=== PATIENT | female | born 1945 | race Caucasian/White ===

== ENCOUNTER 2018-08-04 22:48 | Emergency (ER) | payer MEDICARE ==
--- OUTSIDE RECORDS SUMMARY | 2018-08-04 23:33 | XMS REPORT | Continuity of Care Document ---
:1945 External Reference #:[id number] Author Name Mingo Persaud M.D. Address [address] [place] [address] Care Team Providers Name Role Phone Tima Augustin M.D. Primary Care Physician Unavailable Payers Type Date Identification Numbers Payment Provider Subscriber Policy Number: [id number] Medicare - [employer] Tennille Correakins PayID: [id number] [address] [place] [address] Policy Number: [id number] [facility] Tennille Santana PayID: [id number] [address] [place] [address] Advance Directives Description No Information Available Problems Date Description Provider Status Onset: Hypertensive disorder Active Onset: Chronic back pain Active Onset: 07/25/2018 Regular astigmatism Mingo Persaud M.D. Active Onset: 07/25/2018 Presbyopia Mingo Persaud M.D. Active Onset: 07/25/2018 Myopia Mingo Persaud M.D. 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 twice a day Methadone HCL Active Solution 5mg/5ML Unknown 000 Tramadol HCL Active Tablets 50mg Unknown 000 Diclofenac Active Gel 1% Unknown Sodium 000 Lisinopril Active Tablets 2.5mg Unknown 000 Multivitamin Active Tablets Unknown Adults 000 Vitamin D3 Active Tablets Unknown Complete 000 Biotin Active Capsules 1mg Unknown 000 Caltrate 600+D Active Tablets 600-800mg-U Unknown 000 nit Milk Thistle Active Capsules 140mg Unknown 000 Immunizations Description No Information Available Vital Signs Description No Information Available Results Description No Information Available Procedures Description No Information Available Encounters Description No Information Available Plan of Treatment 07/25/2018 - Mingo Persaud M.D.H04.123 Dry eye syndrome of bilateral lacrimal glandsComments:Smoking can increase the risk of developing or worsening any eye related disease, as well as affect your overall health. If you are a smoker, we strongly recommend that you quit.If you are not a smoker, we strongly recommend that you do not start. Both of your eyes appear to be dry. Use artificial tears as directed. You can use the tears more often if you are reading a book or are on the computer,as we tend to blink less, making our eyes dry out more.[facility] offers a few items in our optical department to help alleviate dry eye symptoms.Follow up:2 Year Follow Up You can expect to have your eyes dilated at your next visit. If Dr. Persaud orders any additional testing, it may require extra time. We recommend that you bring sunglasses, as dilation drops often make you light sensitive until they wear off. We always recommend you bring someone to drive you home if you are uncomfortable driving with your eyes dilated. If you have any questions before your next visit, feel free to call our office at .H52.13 Myopia, bilateralComments:You have Myopia, or near sightedness. I have given you a prescription for glasses.H52.4 PresbyopiaComments:You have presbyopia. This is when the lens in your eye loses the ability to change focus, and happens as we age. A pair of reading glasses will help you see up close.H52.223 Regular astigmatism, bilateralComments:You have an astigmatism. Astigmatism is a common vision condition that happens when a person's cornea is not symmetrical. Dr. Cordero has given you a prescription to correct for this.
[2018-08-04] MEDS ORDERED: Diazepam TAB(*) 5 MG PO ONE (23:57)
[2018-08-04] MEDS ORDERED: Ketorolac TAB * 10 MG TAB PO ONE (23:57)
[2018-08-05] MEDS ORDERED: predniSONE TAB* 20 MG PO ONE (01:57)
--- NOTE | 2018-08-05 02:02 | ED ---
Back Pain - HPI Summary HPI Summary: Patient with history of chronic back pain and sciatica complains of right-sided lower back pain radiating down right leg 4 days. Patient states she has moved here recently and is trying to set up care with pain management but states there is delay. Patient states she takes tramadol in the a.m. and methadone at noon and in the evening for chronic back pain. Denies trauma, fever, cough, sore throat, CV, SOB, N/V/D, Montaño pain, change in urine, change in BM, urinary retention, incontinence. Medical history is HTN, Doe, chronic back pain. History of back surgery 2. - History of Current Complaint Chief Complaint: EDBackInjuryPain Stated Complaint: BACK PAIN Time Seen by Provider: 08/04/18 23:24 Hx Obtained From: Patient Onset/Duration: Gradual Onset, Lasting Days Onset/Duration: Started Days Ago Timing: Constant Back Pain Location: Is Discrete @, Radiates To Severity Initially: Severe Severity Currently: Severe Pain Intensity: 10 Pain Scale Used: 0-10 Numeric Character: Aching, Throbbing, Burning Aggravating Symptom(s): Bending, Walking Alleviating Symptom(s): Nothing Associated Signs And Symptoms: Positive: Negative - Allergies/Home Medications Allergies/Adverse Reactions: Allergies Allergy/AdvReac Type Severity Reaction Status Date / Time alcohol AdvReac Unknown Verified 08/04/18 23:19 [From Bactine (with alcohol)] Reaction Details benzalkonium chloride AdvReac Unknown Verified 08/04/18 23:19 [From Bactine (with alcohol)] Reaction Details lidocaine AdvReac Unknown Verified 08/04/18 23:19 [From Bactine (with alcohol)] Reaction Details pregabalin [From Lyrica] AdvReac Swelling Verified 08/04/18 23:19 PMH/Surg Hx/FS Hx/Imm Hx GI History: Denies: Hx Ileostomy History: Denies: Hx Dialysis Sensory History: Denies: Hx Eye Prosthesis Opthamlomology History: Denies: Hx Legally Blind EENT History: Denies: Hx Deafness Neurological History: Denies: Hx Dementia Psychiatric History: Denies: Hx Autism - Surgical History Surgery Procedure, Year, and Place: Low Back Posterior Fusion L4-5 Infectious Disease History: No Infectious Disease History: Denies: Traveled Outside the [place] in Last 30 Days - Social History Alcohol Use: None Substance Use Type: Reports: None Smoking Status (MU): Never Smoked Tobacco Review of Systems Constitutional: Negative Eyes: Negative ENT: Negative Cardiovascular: Negative Respiratory: Negative Gastrointestinal: Negative Genitourinary: Negative Musculoskeletal: Other Skin: Negative Neurological: Negative Psychological: Normal All Other Systems Reviewed And Are Negative: Yes Physical Exam - Summary Physical Exam Summary: Patient moving bilateral lower extremities freely and frequently while stating lower back pain. Tenderness to palpation along the lower right side back. No tenderness to palpation of right lower extremity or hip. PMS intact distally on bilateral lower extremities. No ecchymosis, erythema, trauma, deformity noted to right side back hip or lower extremity. Triage Information Reviewed: Yes Vital Signs On Initial Exam: Initial Vitals Pulse Pulse Ox 79 96 08/04/18 23:08 08/04/18 23:08 Vital Signs Reviewed: Yes Appearance: Positive: Well-Appearing Skin: Positive: Warm Head/Face: Positive: Normal Head/Face Inspection Eyes: Positive: Normal Neck: Positive: Supple Respiratory/Lung Sounds: Positive: Clear to Auscultation Cardiovascular: Positive: Normal Abdomen Description: Positive: Nontender Musculoskeletal: Positive: Normal Neurological: Positive: Normal Psychiatric: Positive: Normal AVPU Assessment: Alert - [place] Coma Scale Best Eye Response: 4 - Spontaneous Best Motor Response: 6 - Obeys Commands Best Verbal Response: 5 - Oriented Coma Scale Total: 15 Diagnostics - Vital Signs Vital Signs Temp Pulse Resp BP Pulse Ox 08/05/18 01:00 71 93 08/05/18 00:21 16 08/05/18 00:16 88 95 08/05/18 00:08 81 181/87 96 08/05/18 00:00 82 97 08/04/18 23:38 79 170/87 96 08/04/18 23:10 97.7 F 78 20 197/68 96 08/04/18 23:09 79 197/68 93 08/04/18 23:08 79 96 - Laboratory Lab Statement: Any lab studies that have been ordered have been reviewed, and results considered in the medical decision making process. Back Pain Course/Dx - Course Course Of Treatment: Patient with history of chronic back pain and sciatica complains of right-sided lower back pain radiating down right leg 4 days. Patient states she has moved here recently and is trying to set up care with pain management but states there is delay. Patient states she takes tramadol in the a.m. and methadone at noon and in the evening for chronic back pain. Denies trauma, fever, cough, sore throat, CV, SOB, N/V/D, Montaño pain, change in urine, change in BM, urinary retention, incontinence. Medical history is HTN, Doe, chronic back pain. History of back surgery 2. Physical exam:Patient moving bilateral lower extremities freely and frequently while stating lower back pain. Tenderness to palpation along the lower right side back. No tenderness to palpation of right lower extremity or hip. PMS intact distally on bilateral lower extremities. No ecchymosis, erythema, trauma, deformity noted to right side back hip or lower extremity. Elevated blood pressure likely secondary to pain. Vital signs otherwise unremarkable. Patient takes lisinopril daily for blood pressure, and is compliant. Patient has established primary care already urinated [place]. Significant improvement in symptoms with Valium for an hour, then patient states pain returned. Patient was allowed to take her own methadone here in the ED which she normally takes at midnight. Some pain relief. Patient tramadol due at 7 AM. Patient offered hydrocodone to carry her over until tramadol. Follow-up with primary care and pain management. Rx for prednisone and Flexeril. - Diagnoses Provider Diagnoses: Chronic back pain, Sciatica Discharge - Sign-Out/Discharge Documenting (check all that apply): Patient Departure Patient Received Moderate/Deep Sedation with Procedure: No - Discharge Plan Condition: Stable Disposition: HOME Prescriptions: Cyclobenzaprine TAB* [Flexeril 10 MG TAB*] 10 mg PO TID PRN 5 Days #15 tab PRN Reason: Pain predniSONE TAB* [Deltasone 20 MG TAB*] 40 mg PO DAILY 5 Days #10 tab Patient Education Materials: Chronic Back Pain (DC) Referrals: Tima Augustin MD [Primary Care Provider] - Additional Instructions: Follow-up with pain management. Return to the ED for any new or worsening symptoms. - Billing Disposition and Condition Condition: STABLE Disposition: Home
[2018-08-05] MEDS ORDERED: HYDROcodone/ACETAMIN 5-325 MG* 1 TAB PO ONE (03:22)
[2018-08-05 03:41] VITALS: BP 181/81
== END 2018-08-05 04:10 | disposition home or self-care (01) ==
LOC: ED 22:48
DX: M54.9 Dorsalgia, unspecified (principal); M54.30 Sciatica, unspecified side; M54.5 Low back pain; I10 Essential (primary) hypertension
CPT/HCPCS: 99284; A9270-GY; J7512

== ENCOUNTER 2019-09-03 18:30 | Emergency (ER) | payer MEDICARE ==
--- OUTSIDE RECORDS SUMMARY | 2019-09-03 18:35 | XMS REPORT | Summary of Care ---
:1945 Author Organization [facility] Address [address] [facility] [place] [address] Care Team Providers Name Role Phone Tima Augustin Primary Care Provider Reason for Visit Reason Comments Labs Only last done 05/15/19 Diabetes f/u last a1c 05/15 (6.2) Derm Problem area noted on right hand 2nd digit, question cyst; top of bilateral feet increased dry rash area noted Fatigue increased tired/lethargic more recently and worsening Back Pain f/u chronic currently seeing [facility] [place] [place] [facility] Sleep Apnea f/u continues to Cpap at night with effect; Encounter Details Date Type Department Care Team Description 07/07/2019 Office Visit Lerna Tima Valencia, Hypercholesteremia (Primary Dx); [address] Essential hypertension; [place] [address] [address] [facility] Spinal stenosis of lumbar region with neurogenic claudication; [phone] Nonalcoholic steatohepatitis; [place] [address] MICHAEL (obstructive sleep apnea) [phone] Allergies Active Allergy Reactions Severity Noted Date Comments Tape: Silk Or Adhesive Other 05/23/2018 Skin irritant Awsfwmvhfe-Zaixxwu-Zlx-Hc Unknown Reaction 05/23/2018 Bactine Other 05/23/2018 swelling Ed A-Ceph Rash 05/23/2018 Ector Rash 05/23/2018 Benzalk GI Reaction 05/23/2018 Coughing and nausea Qt-Ebpougdcbsi-Hxvnscsxgbo 80 Latex Other 05/23/2018 Skin irritant Nickel Rash 05/23/2018 Titanium Dioxide Rash 05/23/2018 documented as of this encounter (statuses as of 07/23/2019) Medications Medication Sig Dispensed Refills Start Date End Date Status methadone (METHADOSE) Take 10 mg by 0 Active 10 MG Oral Tab mouth EVERY TWELVE HOURS. cyclosporin (RESTASIS) Place 1 Drop 0 Active 0.05 % Ophthalmic in both eyes Emulsion TWICE DAILY. Multiple Take by 0 Active Vitamins-Minerals mouth DAILY. (CENTRUM SILVER) Oral Tab Milk Thistle 140 MG Take by 0 Active Oral Cap mouth TWICE DAILY. Cholecalciferol Take by 0 Active (VITAMIN D3) 2000 mouth TWICE units Oral Tab DAILY. docusate sodium Take 200 mg 0 Active (COLACE) 100 MG Oral by mouth Cap TWICE DAILY. polyethylene glycol Take 17 g by 0 Active (MIRALAX) Oral Powder mouth TWICE DAILY. Triamcinolone [place] 2 0 Active Acetonide (NASACORT AQ Sprays in NA) nose DAILY. Biotin 1000 MCG Oral Take by 0 Active Tab mouth TWICE DAILY. Calcium Take by 0 Active Carb-Cholecalciferol mouth TWICE (CALCIUM 600+D) DAILY. 600-800 MG-UNIT Oral Tab Gabapentin, Take 2 Tabs 90 Tab 0 07/05/2018 Active Once-Daily, (GRALISE) by mouth 600 MG Oral Tab EVERY EVENING. Tramadol HCl 300 MG Take 1 Tab by 5 Tab 0 09/04/2018 Active Oral TABLET SR 24 HR mouth DAILY. Max Daily Amount: 300 mg. Methylnaltrexone Inject 0.6 mL 2.1 mL 3 10/05/2018 Active [place] (RELISTOR) 12 beneath the MG/0.6ML Subcutaneous skin Solution DIRECTED. Uses it 2-3 times a week diclofenac (VOLTAREN) Take 1 Tab by 60 Tab 11 11/29/2018 Active 75 MG Oral Tab EC mouth TWICE DAILY. duloxetine (CYMBALTA) TAKE 1 30 Cap 5 02/17/2019 Active 60 MG Oral CAPSULE CAPSULE BY ENTERIC COATED MOUTH ONCE A PARTICLES DAY cyclobenzaprine Take 10 mg by 0 Active (FLEXERIL) 10 mg Oral mouth THREE Tab TIMES DAILY NEEDED. furosemide (LASIX) 40 Take 1 Tab by 30 Tab 11 05/12/2019 Active MG Oral Tab mouth DAILY. lisinopril (PRINIVIL, TAKE 1 TAB BY 90 Tab 3 06/02/2019 Active ZESTRIL) 10 MG Oral MOUTH DAILY. Tab Fexofenadine-Pseudoeph Take by 0 Active edrine (KARAN-D 24 mouth. HOUR PO) ketoconazole (NIZORAL) Apply to 60 g 3 07/13/2019 Active 2 % Apply externally affected Cream areas daily as needed cetirizine (ZYRTEC Take 10 mg by 0 Discontinued ALLERGY) 10 MG Oral mouth EVERY 0 Tab MORNING. diphenhydrAMINE Take 25 mg by 0 Discontinued (BENADRYL ALLERGY) 25 mouth EVERY 0 MG Oral Tab BEDTIME. documented as of this encounter (statuses as of 07/23/2019) Active Problems Problem Noted Date Diabetes mellitus type 2, without complication 05/12/2019 Chronic back pain Lumbar spinal stenosis HTN (hypertension) Dry eyes Constipation due to opioid therapy Gastroesophageal reflux disease with esophagitis Nonalcoholic steatohepatitis MICHAEL (obstructive sleep apnea) Osteoarthritis of lumbosacral spine with radiculopathy Basal cell carcinoma (BCC) of skin of nose Hypercholesteremia Left ventricular hypertrophy Allergic rhinitis Psoriasis documented as of this encounter (statuses as of 07/23/2019) Immunizations Name Administration Dates Next Due Influenza Vaccine High Dose 04/12/2019 ZOSTER (SHINGRIX) VACCINE 04/19/2019, 12/01/2018 documented as of this encounter Social History Tobacco Use Types Packs/Day Years Used Date Never Smoker Smokeless Tobacco: Never Used Alcohol Use Drinks/Week oz/Week Comments No quit 2004 d/t medications Sex Assigned at Date Recorded Not on file Job Start Date Occupation Industry Not on file Not on file Not on file Travel History Travel Start Travel End No recent travel history available. documented as of this encounter Last Filed Vital Signs Vital Sign Reading Time Taken Comments Blood Pressure 140/72 07/07/2019 2:32 PM EST Pulse 68 07/07/2019 2:32 PM EST Temperature - - Respiratory Rate - - Oxygen Saturation - - Inhaled Oxygen Concentration - - Weight 109.8 kg (242 lb) 07/07/2019 2:32 PM EST Height - - Body Mass Index 40.27 05/12/2019 3:45 PM EST documented in this encounter Progress Notes Tima Augustin MD - 07/07/2019 2:00 PM EST PATIENT: Tennille Santana : 1945 DATE OF SERVICE: 07/07/2019 CHIEF COMPLAINT: Chief Complaint Patient presents with Labs Only last done 05/15/19 Diabetes f/u last a1c 05/15 (6.2) Derm Problem area noted on right hand 2nd digit, question cyst; top of bilateral feet increased dry rash area noted Fatigue increased tired/lethargic more recently and worsening Back Pain f/u chronic currently seeing [facility] [place] Sleep Apnea f/u continues to Cpap at night with effect; Subjective HISTORY OF PRESENT ILLNESS: Tennille Santana is a 74-y.o. female. HPI She returns in follow-up of her multiple medical issues. Feeling more tired, thinks it is from switching from Nucynta to tramadol which was done for formulary reasons. She will be having another steroid injection in her spine with Dr. Wood in a few weeks. She has chronic low back pain, on multiplemedicines for this. She is following with the pain clinic for her pain medications. Has a cyst on her right third DIP joint consistent with a ganglion cyst. Told her this could be excised but did not have to be if it was not bothering her. Using CPAP for sleep apnea, no problems Had lab work done in April with normal CBC and serum chemistries except for sodium 132 glucose 107. TSH was normal, cholesterol was 220 with HDL 78.7 and LDL 109. She was asked to be stricter withher diet with respect to cholesterol. Hemoglobin A1c was 6.2% BNP was normal at 28 indicating no sign of heart failure. Urine for microalbumin was slightly elevated at 47.9. Past Medical History: Diagnosis Date Allergic rhinitis Basal cell carcinoma (BCC) of skin of nose MOHLs procedure 2018 Chronic back pain Closed tibia fracture 06/05/2017 d/t fall, left Constipation due to opioid therapy Dry eyes Gastroesophageal reflux disease with esophagitis HTN (hypertension) Hypercholesteremia Left ventricular hypertrophy Lumbar spinal stenosis Nonalcoholic steatohepatitis MICHAEL (obstructive sleep apnea) Osteoarthritis of lumbosacral spine with radiculopathy Psoriasis Family History Problem Relation Age of Onset Osteoporosis Mother Cancer Father esophageal, non smoker Diabetes Brother Diabetes Maternal Grandfather Current Outpatient Medications Medication Sig Biotin 1000 MCG Oral Tab Take by mouth TWICE DAILY. Calcium Carb-Cholecalciferol (CALCIUM 600+D) 600-800 MG-UNIT Oral Tab Take by mouth TWICE DAILY. Cholecalciferol (VITAMIN D3) 2000 units Oral Tab Take by mouth TWICE DAILY. cyclobenzaprine (FLEXERIL) 10 mg Oral Tab Take 10 mg by mouth THREE TIMES DAILY NEEDED. cyclosporin (RESTASIS) 0.05 % Ophthalmic Emulsion Place 1 Drop in both eyes TWICE DAILY. diclofenac (VOLTAREN) 75 MG Oral Tab EC Take 1 Tab by mouth TWICE DAILY. docusate sodium (COLACE) 100 MG Oral Cap Take 200 mg by mouth TWICE DAILY. duloxetine (CYMBALTA) 60 MG Oral CAPSULE ENTERIC COATED PARTICLES TAKE 1 CAPSULE BY MOUTH ONCE A DAY Fexofenadine-Pseudoephedrine (KARAN-D 24 HOUR PO) Take by mouth. furosemide (LASIX) 40 MG Oral Tab Take 1 Tab by mouth DAILY. Gabapentin, Once-Daily, (GRALISE) 600 MG Oral Tab Take 2 Tabs by mouth EVERY EVENING. lisinopril (PRINIVIL, ZESTRIL) 10 MG Oral Tab TAKE 1 TAB BY MOUTH DAILY. methadone (METHADOSE) 10 MG Oral Tab Take 10 mg by mouth EVERY TWELVE HOURS. Methylnaltrexone Wilton (RELISTOR) 12 MG/0.6ML Subcutaneous Solution Inject 0.6 mL beneath the skin DIRECTED. Uses it 2-3 times a week Milk Thistle 140 MG Oral Cap Take by mouth TWICE DAILY. Multiple Vitamins-Minerals (CENTRUM SILVER) Oral Tab Take by mouth DAILY. polyethylene glycol (MIRALAX) Oral Powder Take 17 g by mouth TWICE DAILY. Tramadol HCl 300 MG Oral TABLET SR 24 HR Take 1 Tab by mouth DAILY. Max Daily Amount: 300 mg. Triamcinolone Acetonide (NASACORT AQ NA) [place] 2 Sprays in nose DAILY. No current facility-administered medications for this visit. Allergies Allergen Reactions Adhesive [Tape: Silk Or Adhesive] Other Skin irritant Fdpfyohdjp-Zllqphr-Kfz-Hc Unknown Reaction Bactine Other swelling Cephalexin [Ed A-Ceph] Rash Ector Rash Flonase [Benzalk Nu-Mynrkbiitvg-Mqnpggzpjeq 80] GI Reaction Coughing and nausea Latex Other Skin irritant Nickel Rash Titanium Dioxide Rash Social History Socioeconomic History Marital status: Spouse name: Not on file Number of children: Not on file Years of education: Not on file Highest education level: Not on file Occupational History Not on file Social Needs Financial resource strain: Not on file Food insecurity Worry: Not on file Inability: Not on file Transportation needs Medical: Not on file Non-medical: Not on file Tobacco Use Smoking status: Never Smoker Smokeless tobacco: Never Used Substance and Sexual Activity Alcohol use: No Comment: quit 2003 d/t medications Drug use: No Sexual activity: Never Lifestyle Physical activity Days per week: Not on file Minutes per session: Not on file Stress: Not on file Relationships Social connections Talks on phone: Not on file Gets together: Not on file Attends temple service: Not on file Active member of club or organization: Not on file Attends meetings of clubs or organizations: Not on file Relationship status: Not on file Intimate partner violence Fear of current or ex partner: Not on file Emotionally abused: Not on file Physically abused: Not on file Forced sexual activity: Not on file Other Topics Concern Not on file Social History Narrative Not on file REVIEW OF SYSTEMS: Review of Systems Constitutional: Positive for malaise/fatigue. Negative for weight loss. HENT: Negative for congestion. Eyes: Negative for blurred vision. Respiratory: Positive for shortness of breath. Cardiovascular: Negative for chest pain. Gastrointestinal: Negative for abdominal pain. Musculoskeletal: Positive for back pain. Skin: Positive for rash ( On feet). Neurological: Negative for seizures and loss of consciousness. Endo/Heme/Allergies: Negative for polydipsia. Psychiatric/Behavioral: The patient is not nervous/anxious. Objective PHYSICAL EXAM: VITALS: BP 140/72 (BP Location: Right arm, Patient Position: Sitting) | Pulse 68 | Wt 242 lb (109.8 kg) | BMI 40.27 kg/m Body mass index is 40.27 kg/m . Physical Exam Alert, oriented, in no acute distress. Vitals as above. HEENT: Normocephalic, atraumatic. MICAELA, EOMI. Mouth and ears unremarkable. Neck: No palpable lymphadenopathy in the submandibular, submental, anterior cervical, posterior cervical, or occipital chains, nor in the supraclavicular spaces. No JVD, thyromegaly. LUNGS: clear. HEART: Regular rate and rhythm. ABDOMEN: positive bowel sounds, soft, nontender, no hepatosplenomegaly, masses or bruits. EXTREMITIES: no cyanosis, clubbing, but with trace1+ edema. Feet with changes of chronic fungal infection in moccasin distribution ASSESSMENT / IMPRESSION: ICD-9-CM ICD-10-CM 1. Hypercholesteremiatreated 272.0 E78.00 2. Essential hypertensioncontrolled 401.9 I10 3. Spinal stenosis of lumbar region with neurogenic claudicationcontinue with pain clinic. Told her to ask doctors if she can get back on Nucynta 724.03 M48.062 4. Nonalcoholic steatohepatitiswork harder on losing weight 571.8 K75.81 5. MICHAEL (obstructive sleep apnea)continue CPAP 327.23 G47.33 6. prediabetes- The patient is asked to improve diet and exercise patterns to aid in medical management of this. 7. Foot rash consistent with fungususe ketoconazole twice daily for 2 weeks She will follow-up in 3 months at which time we will draw CBC CMP lipid profile and hemoglobin A1c for diagnoses of fatigue and prediabetes. CC: Dr. Israel Albarran. author: Tima Augustin MD 07/13/2019 17:54 documented in this encounter Plan of Treatment Date Type Specialty Care Team Description 08/03/2019 Office Visit Gastroenterology Dulce Quezada, DAIRY HUSBANDRY WORKER [address] [address] 10/06/2019 Office Visit Internal Medicine Tima Augustin MD [address] [place] [id number] [phone] Health Maintenance Due Date Last Done Comments Diabetic Eye Exam 1945 MEDICARE ANNUAL WELLNESS VISIT 1945 FOOT EXAM 1961 PNEUMOCOCCAL 65+YRS (1 of 2 - 2008 PCV13) HEMOGLOBIN A1C 11/13/2019 05/15/2019, 02/13/2019, 01/31/2019 DEPRESSION SCREENING 05/12/2020 05/12/2019, 05/12/2019 FALL RISK ASSESSMENT 05/12/2020 05/12/2019, 05/12/2019 OSTEOPOROSIS SCREENING 11/30/2028 11/30/2018, 11/30/2018 INFLUENZA VACCINE Completed 04/12/2019 ZOSTER IMMUNIZATION SERIES Completed 04/19/2019, 12/01/2018 HEPATITIS A IMMUNIZATION Aged Out No longer eligible based SERIES on patient's age to complete this topic HPV IMMUNIZATION SERIES Aged Out No longer eligible based on patient's age to complete this topic MENINGOCOCCAL VACCINE IMM Aged Out No longer eligible based on patient's age to complete this topic documented as of this encounter Goals Goal Patient Goal Associated Recent Patient-Stated? Author Type Problems Progress Blood Pressure Blood Pressure 140/72 No Demetria, < 150/90 (07/07/2019 MD Tima 2:32 PM EST) Note: This is an individualized treatment (blood pressure) goal for Tennille Santana: Displayed above (on the left) is your goal for blood pressure control. Your most recent blood pressure is also shown above, on the right. You should try to achieve blood pressures that are lower than your goal listed above (on the left). Glycohemoglobin A1c < 7.0 Diabetes 6.6 (01/31/2019 3:09 PM Tima Beard MD EDT) Note: This is an individualized treatment (diabetes control, HgbA1C) goal for Tennille Santana: Displayed above is your progress towards your HgbA1C goal. Your goal is shown above (on the left); your most recent HgbA1C is shown on the right. Note that lower numbers are better. Weight loss vs. 18 mo Lifestyle 12 (07/07/2019 2:32 PM EST) Tima Beard MD max (lbs) >= 10 Note: This is an individualized lifestyle goal for Tennille Santana: Your body mass index (BMI) is more than 30. You should lose weight. A reasonable starting goal is to lose 10 pounds. Displayed above is how many pounds you have lost thus far towards your 10 pound weight loss goal. Keep immunizations current Lifestyle Tima Beard MD Note: This is an individualized lifestyle goal for Tennille Santana: Please be sure to keep up-to-date on recommended immunizations. For example, this would include a yearly influenza vaccine. Immunization status can be seen by looking at the Health Maintenance sections of your e[facility], Plan of Care, and any After Visit Summaries. Take all prescribed medications as directed Self-management Tima Beard MD Note: This is an individualized self-management goal for Tennille Santana: Please take all prescribed medications as directed. 1. Do not skip doses. If you cannot afford your medications, talk with your doctor. 2. Use a pill reminder system such as a pill box if needed. Your pharmacist can help you with this. 3. Contact your Pharmacy 5 days before your medication runs out. If you cannot take your medications for any reasons, talk with your doctor. 4. Please bring all of your medication bottles and inhalers (or a list of all your medications/inhalers) with you to every visit. Potential barriers to meeting all of your care plan goals will continue to be addressed on an ongoing basis. documented as of this encounter Results Not on filedocumented in this encounter Visit Diagnoses Diagnosis Hypercholesteremia Pure hypercholesterolemia Essential hypertension Unspecified essential hypertension Spinal stenosis of lumbar region with neurogenic claudication Spinal stenosis, lumbar region, with neurogenic claudication Nonalcoholic steatohepatitis Other chronic nonalcoholic liver disease MICHAEL (obstructive sleep apnea) Obstructive sleep apnea (adult) (pediatric) documented in this encounter Insurance Payer Benefit Plan / Subscriber ID Effective Dates Phone Address Type Group MEDICARE MEDICARE PART A xxxxxxxxxxx 2008-Present Medicare & B [facility] COMMERCIAL [facility] xxxxxxxxxxx 2018-Present [facility] OPTIONS documented as of this encounter"
[2019-09-03 18:56] VITALS: BP 158/75
[2019-09-03] MEDS ORDERED: Sulfamethox/Trimethoprim DS 800/160* TAB PO ONE ×2 (19:34→19:35)
--- NOTE | 2019-09-03 19:38 | UC ---
Skin Complaint HPI - HPI Summary HPI Summary: skin tear right skin 3 days ago---this day swelling and increase redness---- staff at [facility] put on steri strips - History of Current Complaint Chief Complaint: UCLowerExtremity Time Seen by Provider: 09/03/19 19:11 Stated Complaint: LEG WOUND Hx Obtained From: Patient ?: No Onset/Duration: Sudden Onset, Lasting Days, Still Present Timing: Constant Onset Severity: Mild Current Severity: Mild Pain Intensity: 5 Pain Scale Used: 0-10 Numeric Location: Discrete - right neil Character: Swelling, Redness, Painful Aggravating Factor(s): Nothing Alleviating Factor(s): Nothing Associated Signs & Symptoms: Negative: Fever, Drainage Related History: Trauma - hit her leg on the side of the car door - Allergy/Home Medications Allergies/Adverse Reactions: Allergies Allergy/AdvReac Type Severity Reaction Status Date / Time adhesive Allergy Itching Verified 09/03/19 18:56 alcohol AdvReac VERY RED Verified 09/03/19 18:56 [From Bactine (with alcohol)] benzalkonium chloride AdvReac VERY RED Verified 09/03/19 18:56 [From Bactine (with alcohol)] pregabalin [From Lyrica] AdvReac Swelling Verified 09/03/19 18:56 COLBALT Allergy UNSURE- Uncoded 09/03/19 18:56 EXACT REACTION Home Medications: Home Medications Jeffery/D3/Mag11/Zinc/Stitch Separator/Pepe/Bor [Caltrate 600+D Plus Tablet] 1 each PO BID [History Confirmed 09/03/19] Cholecalciferol (Vitamin D3) [Vitamin D3] 2,000 unit PO BID 05/03/18 [History Confirmed 09/03/19] Cyclosporine 0.05% OPHTH (NF) [Restasis 0.05% OPHTH] 1 drop BOTH EYES DAILY 12/13 [History Confirmed 09/03/19] DULoxetine DR CAP* [Cymbalta CAP*] 60 mg PO DAILY 05/03/18 [History Confirmed ] Diclofenac Sodium 75 mg PO BID 05/03/18 [History Confirmed 09/03/19] Docusate CAP* [Colace Cap*] 200 mg PO BID 05/03/18 [History Confirmed 09/03/19] Lisinopril TAB* [Prinivil TAB 10 MG*] 10 mg PO DAILY 05/03/18 [History Confirmed 09/03/19] Methadone TAB* [Dolophine TAB*] 10 mg PO Q12H PRN 05/03/18 [History Confirmed ] Methylnaltrexone SQ (NF) [Relistor SQ (NF)] 12 mg SUBCUT EVERY OTHER DAY [History Confirmed 09/03/19] Milk Thistle Seed Extract [Milk Thistle] 140 mg PO BID 05/03/18 [History Confirmed 09/03/19] Multivitamin/Iron/Folic Acid [Centrum Adults Tablet] 1 each PO DAILY 05/03/18 [ History Confirmed 09/03/19] Polyethylene Glycol 3350* [Miralax (17 GM DOSE AYAZ)] 17 gm PO BID 05/03/18 [ History Confirmed 09/03/19] Triamcinolone NASAL SPRAY* [Nasacort Aq Nasal [place]*] 2 spray .SEE ORDER DAILY 05/03/18 [History Confirmed 09/03/19] Gabapentin [Gralise] 600 mg PO QPM 08/13/18 [History Confirmed 09/03/19] Tapentadol ER (NF) [Nucynta ER (NF)] 100 mg PO BID 07/26/19 [History Confirmed 09/03/19] Sulfamethox/Trimethoprim DS* [Bactrim DS 800/160 TAB*] 1 tab PO BID #12 tab 02/14 [Rx] PMH/Surg Hx/FS Hx/Imm Hx Previously Healthy: No Cardiovascular History: Hypertension - Surgical History Surgical History: Yes Surgery Procedure, Year, and Place: 2009 -Low Back Posterior Fusion L4-5. CATARACTS. BASAL CELL CARCINOMA SPOTS REMOVED - Family History Known Family History: Positive: Diabetes, Other - Cancer - Social History Occupation: Retired Lives: Assisted Living Alcohol Use: None Substance Use Type: None Smoking Status (MU): Never Smoked Tobacco Household Exposure Type: Cigarettes Review of Systems All Other Systems Reviewed And Are Negative: Yes Constitutional: Positive: Negative Skin: Positive: Other - skin tear right lower leg 4 cm arc shapped--poor approximation steris appied by Elizabeth 3 days ago Eyes: Positive: Negative ENT: Positive: Negative Respiratory: Positive: Negative Cardiovascular: Positive: Negative Gastrointestinal: Positive: Negative Genitourinary: Positive: Negative Motor: Positive: Negative Neurovascular: Positive: Negative Musculoskeletal: Positive: Negative Neurological/Mental Status: Positive: Negative Psychological: Positive: Negative Is Patient Immunocompromised?: No Physical Exam Triage Information Reviewed: Yes Appearance: Well-Appearing, No Pain Distress, Well-Nourished Vital Signs: Initial Vital Signs Temp 98.0 F 09/03/19 18:52 Pulse 79 09/03/19 18:52 Resp 18 09/03/19 18:52 BP 158/75 09/03/19 18:52 Pulse Ox 97 09/03/19 18:52 Vital Signs Reviewed: Yes Eye Exam: Normal Eyes: Positive: Conjunctiva Clear ENT Exam: Normal ENT: Positive: Normal ENT inspection, Hearing grossly normal. Negative: Trismus , Muffled voice, Hoarse voice Neck exam: Normal Neck: Positive: Supple, Nontender, No Lymphadenopathy Respiratory Exam: Normal Respiratory: Positive: Chest non-tender, No respiratory distress, No accessory muscle use Cardiovascular Exam: Normal Cardiovascular: Positive: RRR, Pulses Normal, Brisk Capillary Refill Musculoskeletal Exam: Other Musculoskeletal: Positive: Strength Intact, ROM Intact, Edema @ - right lower leg, Other: - no calf pain Neurological Exam: Normal Neurological: Positive: Alert, Muscle Tone Normal Psychological Exam: Normal Skin: Positive: Other - 4 cm arc shaped skin tear right neil---now with increase swelling and erythema anterior portion of lower leg Course/Dx - Course Course Of Treatment: Vaseline gauze bulky dressing and stockinette to be changed daily bactrim ds elevate leg and use heat---follow with [facility] and pcp this week for wound and bp checks - Diagnoses Provider Diagnosis: Cellulitis of right anterior lower leg Discharge ED - Sign-Out/Discharge Documenting (check all that apply): Patient Departure All imaging exams completed and their final reports reviewed: No Studies - Discharge Plan Condition: Stable Disposition: HOME Prescriptions: Sulfamethox/Trimethoprim DS* [Bactrim DS 800/160 TAB*] 1 tab PO BID #12 tab Patient Education Materials: Cellulitis (ED), Hypertension (ED), Warm Compress or Soak (ED) Referrals: Tima Augustin MD [Primary Care Provider] - 4 Days Additional Instructions: Change dressing on leg daily, elevate leg !! - Billing Disposition and Condition Condition: STABLE Disposition: Home
== END 2019-09-03 20:17 | disposition home or self-care (01) ==
LOC: UCEAST 18:30
DX: L03.115 Cellulitis of right lower limb (principal); I10 Essential (primary) hypertension; Z79.899 Other long term (current) drug therapy; Z91.09 Other allergy status, other than to drugs and biological substances; Z88.8 Allergy status to other drugs, medicaments and biological substances
CPT/HCPCS: 99213; A9270-GY; G0463

== ENCOUNTER 2020-02-06 12:59 | Inpatient (IN) ==
[2020-02-06] MEDS ORDERED: NS 0.9% 1000 ml BAG 1,000 ML IV ONE ×2 (13:28→16:51)
[2020-02-06 14:16] LABS: ABS Lymphocytes 0.4 10^3/ul (1.0-4.8); ABS Monocytes 0.3 10^3/ul (0-0.8); ABS Neutrophils 4.6 10^3/ul (1.5-7.7); Eosinophil % 0.1 %; Hematocrit 35 % (35-47); Hemoglobin 12.6 g/dL (12.0-16.0); Lymphocyte % 8.3 %; Mean Corpuscular HGB Conc 36 g/dL (31-36); Mean Corpuscular Hemoglobin 33 pg (27-31); Mean Corpuscular Volume 92 fL (80-97); Mean Platelet Volume 6.6 fL (7.4-10.4); Platelet Count 367 10^3/uL (150-450); Red Cell Distribution Width 13 % (10-15); White Blood Count 5.4 10^3/uL (3.5-10.8)
[2020-02-06 14:25] LABS: INR 0.98 (0.82-1.09)
[2020-02-06] MEDS ORDERED: Lidocaine PATCH 5% PATCH TRANSDERM ONE (14:43)
[2020-02-06 15:00] LABS: Potassium 3.9 mmol/L (3.5-5.0)
[2020-02-06 15:01] LABS: Albumin 4.7 g/dL (3.2-5.2); Albumin/Globulin Ratio 1.7 (1-3); BUN/Creatinine Ratio 23.7 (8-20); EGFR African American 89.5 (>60); Globulin 2.8 g/dL (2-4); Magnesium 2.1 mg/dL (1.9-2.7); Total Bilirubin 0.5 mg/dL (0.2-1.0); Total Protein 7.5 g/dL (6.4-8.9)
[2020-02-06 15:10] LABS: TSH Ultra Thyroid Stim Horm 1.38 mcIU/mL (0.34-5.60)
[2020-02-06] MEDS ORDERED: Morphine 4 MG/ML VIAL (1 ml) IV ONE (15:21)
[2020-02-06 15:56] LABS: Urine Appearance Clear; Urine Bilirubin Negative (Negative); Urine Blood Negative (Negative); Urine Color Colorless; Urine Glucose Negative (Negative); Urine Ketones Trace (Negative); Urine Nitrite Negative (Negative); Urine Protein Negative (Negative); Urine Specific Gravity 1.003 (1.010-1.030); Urine Urobilinogen Negative (Negative)
[2020-02-06 18:06] LABS: BUN/Creatinine Ratio 18.9 (8-20); Calcium 9.8 mg/dL (8.6-10.3); EGFR African American 92.3 (>60); EGFR Non-African American 76.3 (>60); Potassium 4.1 mmol/L (3.5-5.0)
[2020-02-06] MEDS ORDERED: LORazepam 2 mg VIAL 1 ml IV PUSH ONE ×2 (18:54→19:52)
[2020-02-06] MEDS ORDERED: Lorazepam PYXIS KEY PRN (18:54)
[2020-02-06 18:59] LABS: C Reactive Protein 1.14 mg/L (<8.01)
[2020-02-06] MEDS ORDERED: LORazepam 2 mg VIAL 1 ml ONE (19:04)
[2020-02-06] MEDS ORDERED: Tapentadol 50 mg TAB (NF) PO ONE (19:07)
[2020-02-06] MEDS ORDERED: Ondansetron 4 mg VIAL 2 MG/ML 2 ml VIAL IV PRN (19:23)
[2020-02-06] MEDS ORDERED: NS 0.9% 1000 ml BAG 1,000 ML IV SCH (20:00)
[2020-02-06] MEDS: Enoxaparin 40 MG/0.4 ML SYR SUBCUT SCH (21:15)
[2020-02-06 21:16] LABS: Urine Creatinine Concentration 7.89 mg/dL
[2020-02-06] MEDS: Cholecalciferol (VIT D3) 1,000 unit TAB PO SCH (21:17)
[2020-02-06] MEDS: Polyethylene Glycol 3350 17 GM PACKET PO SCH (21:18)
[2020-02-06] MEDS: Diclofenac Sod EC 25 mg TAB PO SCH (21:25)
[2020-02-06] MEDS: Polyethyl Glycol/Propylene Gly OPHTH.SOLN BOTH EYES SCH (21:26)
[2020-02-06] MEDS: Lidocaine Patch REMOVE PATCH PATCH OFF SCH (22:00)
[2020-02-07 00:31] LABS: Calcium 9.4 mg/dL (8.6-10.3)
[2020-02-07 00:37] LABS: BUN/Creatinine Ratio 17.6 (8-20); EGFR African American 101.8 (>60); EGFR Non-African American 84.1 (>60)
[2020-02-07] MEDS: Tapentadol 50 mg TAB (NF) PO PRN ×2 (01:54→18:20)
[2020-02-07] MEDS: Diclofenac Sod EC 25 mg TAB PO SCH ×2 (10:17→20:35)
[2020-02-07] MEDS: Polyethyl Glycol/Propylene Gly OPHTH.SOLN BOTH EYES SCH ×2 (10:17→20:38)
[2020-02-07] MEDS: Cholecalciferol (VIT D3) 1,000 unit TAB PO SCH ×2 (10:17→20:36)
[2020-02-07] MEDS: DULoxetine DR 60 mg CAP PO SCH (10:17)
[2020-02-07] MEDS: Polyethylene Glycol 3350 17 GM PACKET PO SCH ×2 (10:18→20:39)
[2020-02-07] MEDS: TRIAMCINOLONE BOTH NARES SCH (10:18)
[2020-02-07 11:38] LABS: ABS Eosinophils 0.1 10^3/ul (0-0.6); ABS Lymphocytes 0.7 10^3/ul (1.0-4.8); ABS Monocytes 0.6 10^3/ul (0-0.8); ABS Neutrophils 4.6 10^3/ul (1.5-7.7); Eosinophil % 0.9 %; Hematocrit 35 % (35-47); Hemoglobin 12.3 g/dL (12.0-16.0); Lymphocyte % 11.7 %; Mean Corpuscular HGB Conc 36 g/dL (31-36); Mean Corpuscular Hemoglobin 33 pg (27-31); Mean Corpuscular Volume 93 fL (80-97); Mean Platelet Volume 6.6 fL (7.4-10.4); Platelet Count 369 10^3/uL (150-450); Red Cell Distribution Width 13 % (10-15)
[2020-02-07 12:02] LABS: BUN/Creatinine Ratio 18.1 (8-20); Calcium 9.7 mg/dL (8.6-10.3); EGFR African American 95.3 (>60); EGFR Non-African American 78.8 (>60); Potassium 3.7 mmol/L (3.5-5.0)
[2020-02-07 13:12] LABS: Hepatitis B Surface Ab Not Immune (Immune); Hepatitis C Antibody Negative (Negative)
[2020-02-07 14:26] LABS: Hepatitis B Surface Antigen Nonreactive (Nonreactive)
[2020-02-07 14:31] LABS: HIV 4th Generation Nonreactive (Nonreactive)
[2020-02-07] MEDS: Enoxaparin 40 MG/0.4 ML SYR SUBCUT SCH (20:37)
[2020-02-07] MEDS: Lidocaine Patch REMOVE PATCH PATCH OFF SCH (22:44)
[2020-02-08] MEDS: Tapentadol 50 mg TAB (NF) PO SCH ×4 (00:21→17:44)
[2020-02-08 06:44] LABS: ABS Basophils 0.1 10^3/ul (0-0.2); ABS Eosinophils 0.1 10^3/ul (0-0.6); ABS Lymphocytes 1.4 10^3/ul (1.0-4.8); ABS Monocytes 0.5 10^3/ul (0-0.8); ABS Neutrophils 2.9 10^3/ul (1.5-7.7); Eosinophil % 2.8 %; Hematocrit 33 % (35-47); Hemoglobin 11.6 g/dL (12.0-16.0); Mean Corpuscular HGB Conc 35 g/dL (31-36); Mean Corpuscular Hemoglobin 33 pg (27-31); Mean Corpuscular Volume 94 fL (80-97); Mean Platelet Volume 6.6 fL (7.4-10.4); Platelet Count 325 10^3/uL (150-450); Red Cell Distribution Width 13 % (10-15); White Blood Count 5.1 10^3/uL (3.5-10.8)
[2020-02-08 07:01] LABS: BUN/Creatinine Ratio 20.6 (8-20); Calcium 9.9 mg/dL (8.6-10.3); EGFR African American 67.6 (>60); EGFR Non-African American 55.8 (>60); Potassium 4.1 mmol/L (3.5-5.0)
[2020-02-08] MEDS: Polyethylene Glycol 3350 17 GM PACKET PO SCH ×2 (08:25→19:58)
[2020-02-08] MEDS: Polyethyl Glycol/Propylene Gly OPHTH.SOLN BOTH EYES SCH (08:27)
[2020-02-08] MEDS: Cholecalciferol (VIT D3) 1,000 unit TAB PO SCH ×2 (08:27→19:58)
[2020-02-08] MEDS: DULoxetine DR 60 mg CAP PO SCH (08:27)
[2020-02-08] MEDS: TRIAMCINOLONE BOTH NARES SCH (08:28)
[2020-02-08] MEDS: Diclofenac Sod EC 25 mg TAB PO SCH ×2 (08:28→19:58)
[2020-02-08] MEDS ORDERED: Methylnaltrexone SQ (NF) 12 MG/0.6 ML VIAL SUBCUT PRN (09:00)
[2020-02-08] MEDS: Enoxaparin 40 MG/0.4 ML SYR SUBCUT SCH (19:59)
[2020-02-08] MEDS: Lidocaine Patch REMOVE PATCH PATCH OFF SCH (20:10)
[2020-02-09] MEDS: Tapentadol 50 mg TAB (NF) PO SCH ×5 (02:10→18:47)
[2020-02-09] MEDS: Polyethyl Glycol/Propylene Gly OPHTH.SOLN BOTH EYES SCH ×3 (03:52→20:34)
[2020-02-09 06:59] LABS: ABS Eosinophils 0.2 10^3/ul (0-0.6); ABS Lymphocytes 1.4 10^3/ul (1.0-4.8); ABS Monocytes 0.5 10^3/ul (0-0.8); ABS Neutrophils 2.1 10^3/ul (1.5-7.7); Eosinophil % 5.5 %; Hematocrit 32 % (35-47); Hemoglobin 11.4 g/dL (12.0-16.0); Lymphocyte % 32.2 %; Mean Corpuscular HGB Conc 36 g/dL (31-36); Mean Corpuscular Hemoglobin 34 pg (27-31); Mean Corpuscular Volume 94 fL (80-97); Mean Platelet Volume 6.2 fL (7.4-10.4); Nucleated Red Blood Cells % 0.1; Platelet Count 317 10^3/uL (150-450); Red Cell Distribution Width 13 % (10-15); White Blood Count 4.3 10^3/uL (3.5-10.8)
[2020-02-09 07:15] LABS: BUN/Creatinine Ratio 21.6 (8-20); Calcium 9.6 mg/dL (8.6-10.3); EGFR African American 67.6 (>60); EGFR Non-African American 55.8 (>60); Potassium 4.5 mmol/L (3.5-5.0)
[2020-02-09] MEDS: DULoxetine DR 60 mg CAP PO SCH (08:04)
[2020-02-09] MEDS: Polyethylene Glycol 3350 17 GM PACKET PO SCH ×2 (08:06→20:34)
[2020-02-09] MEDS: Diclofenac Sod EC 25 mg TAB PO SCH ×2 (08:09→20:34)
[2020-02-09] MEDS: Cholecalciferol (VIT D3) 1,000 unit TAB PO SCH ×2 (08:13→20:34)
[2020-02-09] MEDS: TRIAMCINOLONE BOTH NARES SCH (10:17)
[2020-02-09] MEDS: Enoxaparin 40 MG/0.4 ML SYR SUBCUT SCH (20:35)
[2020-02-09] MEDS: Lidocaine Patch REMOVE PATCH PATCH OFF SCH (21:20)
[2020-02-10] MEDS: Tapentadol 50 mg TAB (NF) PO SCH ×3 (00:09→12:20)
[2020-02-10 05:35] LABS: ABS Eosinophils 0.2 10^3/ul (0-0.6); ABS Lymphocytes 1.3 10^3/ul (1.0-4.8); ABS Monocytes 0.4 10^3/ul (0-0.8); ABS Neutrophils 1.8 10^3/ul (1.5-7.7); Hematocrit 33 % (35-47); Hemoglobin 11.4 g/dL (12.0-16.0); Lymphocyte % 35.2 %; Mean Corpuscular HGB Conc 35 g/dL (31-36); Mean Corpuscular Hemoglobin 33 pg (27-31); Mean Corpuscular Volume 94 fL (80-97); Mean Platelet Volume 6.4 fL (7.4-10.4); Nucleated Red Blood Cells % 0.1; Platelet Count 330 10^3/uL (150-450); Red Blood Count 3.45 10^6 /uL (3.70-4.87); Red Cell Distribution Width 13 % (10-15); White Blood Count 3.7 10^3/uL (3.5-10.8)
[2020-02-10 05:47] LABS: Calcium 9.7 mg/dL (8.6-10.3); EGFR African American 92.3 (>60); EGFR Non-African American 76.3 (>60); Potassium 4.4 mmol/L (3.5-5.0)
[2020-02-10] MEDS: Cholecalciferol (VIT D3) 1,000 unit TAB PO SCH (08:58)
[2020-02-10] MEDS: Diclofenac Sod EC 25 mg TAB PO SCH (08:58)
[2020-02-10] MEDS: Polyethylene Glycol 3350 17 GM PACKET PO SCH (08:59)
[2020-02-10] MEDS: Polyethyl Glycol/Propylene Gly OPHTH.SOLN BOTH EYES SCH (08:59)
[2020-02-10] MEDS: TRIAMCINOLONE BOTH NARES SCH (09:00)
[2020-02-10] MEDS ORDERED: DULoxetine DR 30 mg CAP PO SCH (09:00)
[2020-02-10 11:55] VITALS: BP 126/51
== END 2020-02-10 12:45 | disposition home or self-care (01) | DRG 645 ==
LOC: ED 12:59 → MED 19:23
PROVIDERS: ADMIT Internal Medicine; ATTEND Internal Medicine

== ENCOUNTER 2020-05-13 21:44 | Inpatient (IN) ==
[2020-05-13 23:11] LABS: ABS Eosinophils 0.1 10^3/ul (0-0.6); ABS Lymphocytes 0.6 10^3/ul (1.0-4.8); ABS Monocytes 0.4 10^3/ul (0-0.8); ABS Neutrophils 7.8 10^3/ul (1.5-7.7); Eosinophil % 1.1 %; Hematocrit 33 % (35-47); Hemoglobin 11.1 g/dL (12.0-16.0); Lymphocyte % 7.1 %; Mean Corpuscular HGB Conc 34 g/dL (31-36); Mean Corpuscular Hemoglobin 33 pg (27-31); Mean Corpuscular Volume 97 fL (80-97); Mean Platelet Volume 7.2 fL (7.4-10.4); Platelet Count 302 10^3/uL (150-450); Red Blood Count 3.35 10^6 /uL (3.70-4.87); Red Cell Distribution Width 14 % (10-15)
[2020-05-13] MEDS ORDERED: fentaNYL 100 mcg/2 ml 50 MCG/ML VIAL IV SLOW PU ONE (23:16)
[2020-05-13 23:30] LABS: Albumin 4.4 g/dL (3.2-5.2); Albumin/Globulin Ratio 1.6 (1-3); Calcium 9.5 mg/dL (8.6-10.3); EGFR Non-African American 72.7 (>60); Globulin 2.8 g/dL (2-4); Magnesium 2.2 mg/dL (1.9-2.7); Potassium 4.3 mmol/L (3.5-5.0); Total Bilirubin 0.3 mg/dL (0.2-1.0); Total Protein 7.2 g/dL (6.4-8.9)
[2020-05-14 00:31] LABS: TSH Ultra Thyroid Stim Horm 1.75 mcIU/mL (0.34-5.60)
[2020-05-14] MEDS: Tapentadol 50 mg TAB (NF) PO SCH ×4 (04:04→23:52)
[2020-05-14] MEDS: Heparin 5000 UNITS/ML 1 mL VIAL SUBCUT SCH ×3 (04:10→21:17)
[2020-05-14 05:40] LABS: ABS Eosinophils 0.2 10^3/ul (0-0.6); ABS Lymphocytes 1.2 10^3/ul (1.0-4.8); ABS Monocytes 0.6 10^3/ul (0-0.8); ABS Neutrophils 3.9 10^3/ul (1.5-7.7); Eosinophil % 3.7 %; Hematocrit 32 % (35-47); Lymphocyte % 19.9 %; Mean Corpuscular HGB Conc 34 g/dL (31-36); Mean Corpuscular Hemoglobin 33 pg (27-31); Mean Corpuscular Volume 98 fL (80-97); Mean Platelet Volume 7.7 fL (7.4-10.4); Platelet Count 295 10^3/uL (150-450); Red Blood Count 3.29 10^6 /uL (3.70-4.87); Red Cell Distribution Width 14 % (10-15)
[2020-05-14 05:41] LABS: INR 1.04 (0.82-1.09)
[2020-05-14 05:57] LABS: Albumin 4.2 g/dL (3.2-5.2); Albumin/Globulin Ratio 1.6 (1-3); BUN/Creatinine Ratio 32.1 (8-20); Calcium 9.6 mg/dL (8.6-10.3); EGFR Non-African American 68.6 (>60); Globulin 2.7 g/dL (2-4); Indirect Bilirubin 0.2 mg/dL (0.3-1.0); Potassium 4.9 mmol/L (3.5-5.0); Total Bilirubin 0.3 mg/dL (0.2-1.0); Total Protein 6.9 g/dL (6.4-8.9)
[2020-05-14] MEDS ORDERED: Methylnaltrexone SQ (NF) 12 MG/0.6 ML VIAL SUBCUT PRN (09:00)
[2020-05-14] MEDS ORDERED: TRIAMCINOLONE INTRANASAL SCH (09:00)
[2020-05-14] MEDS: Polyethylene Glycol 3350 17 GM PACKET PO SCH ×2 (09:24→21:15)
[2020-05-14] MEDS: Cholecalciferol (VIT D3) 1,000 unit TAB PO SCH ×2 (09:24→21:12)
[2020-05-14] MEDS: DULoxetine DR 30 mg CAP PO SCH (09:25)
[2020-05-14] MEDS: Multivitamins/Minerals TAB PO SCH (09:26)
[2020-05-14] MEDS: Diclofenac Sod EC 25 mg TAB PO SCH ×2 (09:28→21:13)
[2020-05-14] MEDS: [UNRECOGNIZED DRUG - OTHER] PO SCH ×2 (09:28→21:14)
[2020-05-14] MEDS: MILK THISTLE SEED EXTRACT PO SCH ×2 (09:28→21:12)
[2020-05-14] MEDS: CMCS:Cyclosporine 0.05% OPHTH (NF) 0.4 ML VIAL BOTH EYES SCH ×2 (09:28→21:17)
[2020-05-14] MEDS ORDERED: Lactated Ringers 1000 ml BAG 1,000 ML IV ONE (10:23)
[2020-05-14] MEDS ORDERED: Perflutren Lipid Microsphere 3 ML VIAL ONE (14:10)
[2020-05-14 15:03] LABS: Urine Appearance Cloudy; Urine Bilirubin Negative (Negative); Urine Blood Negative (Negative); Urine Color Yellow; Urine Glucose Negative (Negative); Urine Ketones Negative (Negative); Urine Nitrite Negative (Negative); Urine Protein Negative (Negative); Urine Specific Gravity 1.014 (1.010-1.030); Urine Urobilinogen Negative (Negative)
[2020-05-14 15:32] LABS: Urine Bacteria Absent (Absent); Urine Red Blood Cell Trace(0-2/hpf) (Absent); Urine Squamous Epithelial Cell Present (Absent); Urine White Blood Cell Trace(0-5/hpf) (Absent)
[2020-05-14] MEDS ORDERED: TAPENTADOL 100 MG PO SCH (18:00)
[2020-05-14] MEDS: TRIAMCINOLONE SCH (21:16)
[2020-05-15] MEDS: Tapentadol 50 mg TAB (NF) PO SCH ×4 (05:11→23:32)
[2020-05-15] MEDS: Lactated Ringers 1000 ml BAG 1,000 ML IV SCH ×2 (05:12→17:36)
[2020-05-15 06:18] LABS: ABS Basophils 0.1 10^3/ul (0-0.2); ABS Eosinophils 0.4 10^3/ul (0-0.6); ABS Lymphocytes 1.4 10^3/ul (1.0-4.8); ABS Monocytes 0.4 10^3/ul (0-0.8); ABS Neutrophils 1.7 10^3/ul (1.5-7.7); Eosinophil % 9.6 %; Hematocrit 30 % (35-47); Hemoglobin 10.5 g/dL (12.0-16.0); Lymphocyte % 35.3 %; Mean Corpuscular HGB Conc 35 g/dL (31-36); Mean Corpuscular Hemoglobin 34 pg (27-31); Mean Corpuscular Volume 98 fL (80-97); Mean Platelet Volume 7.5 fL (7.4-10.4); Platelet Count 260 10^3/uL (150-450); Red Blood Count 3.06 10^6 /uL (3.70-4.87); Red Cell Distribution Width 14 % (10-15)
[2020-05-15 06:21] LABS: INR 1.04 (0.82-1.09)
[2020-05-15 06:33] LABS: BUN/Creatinine Ratio 26.1 (8-20); Calcium 9.6 mg/dL (8.6-10.3); EGFR African American 99.8 (>60); EGFR Non-African American 82.5 (>60)
[2020-05-15 09:06] LABS: Hepatitis B Surface Antigen Nonreactive (Nonreactive)
[2020-05-15 09:11] LABS: Hepatitis A Ab IgM Negative (Negative)
[2020-05-15 09:12] LABS: Hepatitis B Core IgM Nonreactive (Nonreactive)
[2020-05-15 09:24] LABS: Hepatitis C Antibody Negative (Negative)
[2020-05-15] MEDS: Polyethylene Glycol 3350 17 GM PACKET PO SCH ×2 (09:45→20:28)
[2020-05-15] MEDS: [UNRECOGNIZED DRUG - OTHER] PO SCH ×2 (09:45→20:27)
[2020-05-15] MEDS: MILK THISTLE SEED EXTRACT PO SCH ×2 (09:46→20:27)
[2020-05-15] MEDS: Cholecalciferol (VIT D3) 1,000 unit TAB PO SCH ×2 (09:52→20:28)
[2020-05-15] MEDS: DULoxetine DR 30 mg CAP PO SCH (09:54)
[2020-05-15] MEDS: Diclofenac Sod EC 25 mg TAB PO SCH ×2 (09:54→20:29)
[2020-05-15 09:55] LABS: Folate 19.61 ng/mL (>3.99)
[2020-05-15] MEDS: Multivitamins/Minerals TAB PO SCH (09:58)
[2020-05-15] MEDS: CMCS:Cyclosporine 0.05% OPHTH (NF) 0.4 ML VIAL BOTH EYES SCH ×2 (09:59→20:29)
[2020-05-15] MEDS ORDERED: Bupivacaine 0.5% SDV PF 30ML VIAL ONE (10:55)
[2020-05-15] MEDS ORDERED: Lidocaine 1% w EPI 1:100,000 MDV 20 ML VIAL ONE (10:55)
[2020-05-15] MEDS ORDERED: Vancomycin 1,000 MG VIAL ONE (10:57)
[2020-05-15] MEDS ORDERED: ceFAZolin 2 GM PREMIX 2 GM/50 ML BAG ONE (12:37)
[2020-05-15] MEDS ORDERED: fentaNYL 100 mcg/2 ml 50 MCG/ML VIAL ONE ×3 (13:09→15:26)
[2020-05-15] MEDS ORDERED: Midazolam 2 mg/2 ml VIAL 1 mg/ml 2 ml VIAL (2 mg) ONE (13:10)
[2020-05-15] MEDS ORDERED: Dexamethasone IV 4 MG/ML VIAL 1 ml VIAL ONE (13:32)
[2020-05-15] MEDS ORDERED: Propofol 10 MG/ML 20 ML BTL ONE (13:32)
[2020-05-15] MEDS ORDERED: Ketamine HCL 50 mg/ml 10 ml VIAL (500 MG) ONE (13:46)
[2020-05-15] MEDS ORDERED: Ondansetron 4 mg VIAL 2 MG/ML 2 ml VIAL IV PRN (14:31)
[2020-05-15] MEDS ORDERED: DiMENhydriNATE IV 50 mg/ml 1 ml VIAL IV PUSH PRN (14:31)
[2020-05-15] MEDS: fentaNYL 100 mcg/2 ml 50 MCG/ML VIAL IV PRN ×4 (15:26→15:44)
[2020-05-15] MEDS ORDERED: cefTRIAXone 2 GM ADDV.VIAL 1 GM in NS 0.9% 100 ml BAG 100 ML IV SCH (17:00)
[2020-05-15 18:02] LABS: Calcium 9.6 mg/dL (8.6-10.3); Potassium 3.8 mmol/L (3.5-5.0)
[2020-05-15 18:07] LABS: BUN/Creatinine Ratio 18.8 (8-20); EGFR African American 99.8 (>60); EGFR Non-African American 82.5 (>60)
[2020-05-15] MEDS: TRIAMCINOLONE SCH (20:28)
[2020-05-15] MEDS: ceFAZolin 1 GM X 3 DOSES POST-OP Q8H (AddVan) IVPB SCH (22:08)
[2020-05-16] MEDS: ceFAZolin 1 GM X 3 DOSES POST-OP Q8H (AddVan) IVPB SCH ×2 (05:42→14:41)
[2020-05-16] MEDS: Tapentadol 50 mg TAB (NF) PO SCH ×3 (05:45→17:49)
[2020-05-16 06:24] LABS: ABS Eosinophils 0.1 10^3/ul (0-0.6); ABS Lymphocytes 1.4 10^3/ul (1.0-4.8); ABS Monocytes 0.4 10^3/ul (0-0.8); ABS Neutrophils 4.1 10^3/ul (1.5-7.7); Eosinophil % 0.9 %; Hematocrit 27 % (35-47); Hemoglobin 9.2 g/dL (12.0-16.0); Lymphocyte % 23.3 %; Mean Corpuscular HGB Conc 35 g/dL (31-36); Mean Corpuscular Hemoglobin 34 pg (27-31); Mean Corpuscular Volume 97 fL (80-97); Mean Platelet Volume 7.5 fL (7.4-10.4); Platelet Count 261 10^3/uL (150-450); Red Blood Count 2.73 10^6 /uL (3.70-4.87); Red Cell Distribution Width 14 % (10-15)
[2020-05-16] MEDS: DULoxetine DR 30 mg CAP PO SCH (08:17)
[2020-05-16] MEDS: Heparin 5000 UNITS/ML 1 mL VIAL SUBCUT SCH ×2 (08:17→21:32)
[2020-05-16] MEDS: Cholecalciferol (VIT D3) 1,000 unit TAB PO SCH ×2 (08:18→21:33)
[2020-05-16] MEDS: CMCS:Cyclosporine 0.05% OPHTH (NF) 0.4 ML VIAL BOTH EYES SCH ×2 (08:18→21:33)
[2020-05-16] MEDS: Diclofenac Sod EC 25 mg TAB PO SCH ×2 (08:18→21:30)
[2020-05-16] MEDS: Multivitamins/Minerals TAB PO SCH (08:18)
[2020-05-16] MEDS: Polyethylene Glycol 3350 17 GM PACKET PO SCH ×2 (08:19→21:29)
[2020-05-16] MEDS: [UNRECOGNIZED DRUG - OTHER] PO SCH ×2 (08:42→21:29)
[2020-05-16] MEDS: MILK THISTLE SEED EXTRACT PO SCH ×2 (08:42→21:29)
[2020-05-16 10:22] LABS: Albumin 3.7 g/dL (3.2-5.2); Albumin/Globulin Ratio 1.5 (1-3); Globulin 2.5 g/dL (2-4); Indirect Bilirubin 0.2 mg/dL (0.3-1.0); Total Bilirubin 0.3 mg/dL (0.2-1.0); Total Protein 6.2 g/dL (6.4-8.9)
[2020-05-16 20:36] LABS: Calcium 9.2 mg/dL (8.6-10.3); Potassium 4.2 mmol/L (3.5-5.0)
[2020-05-16 20:42] LABS: BUN/Creatinine Ratio 22.5 (8-20); EGFR African American 96.6 (>60); EGFR Non-African American 79.8 (>60)
[2020-05-16] MEDS: TRIAMCINOLONE SCH (21:32)
[2020-05-16] MEDS: ceFAZolin 1 GM ADVAN 1 GM in NS 0.9% 50 ML 50 ML IVPB SCH (21:33)
[2020-05-16] MEDS ORDERED: cefTRIAXone 2 GM ADDV.VIAL 1 GM in NS 0.9% 100 ml BAG 100 ML IV SCH (22:00)
[2020-05-17] MEDS: Tapentadol 50 mg TAB (NF) PO SCH ×3 (01:02→12:32)
[2020-05-17] MEDS: ceFAZolin 1 GM ADVAN 1 GM in NS 0.9% 50 ML 50 ML IVPB SCH ×2 (04:42→12:33)
[2020-05-17 06:25] LABS: ABS Basophils 0.1 10^3/ul (0-0.2); ABS Eosinophils 0.4 10^3/ul (0-0.6); ABS Lymphocytes 1.6 10^3/ul (1.0-4.8); ABS Monocytes 0.3 10^3/ul (0-0.8); ABS Neutrophils 1.6 10^3/ul (1.5-7.7); Eosinophil % 9.5 %; Hematocrit 29 % (35-47); Lymphocyte % 40.4 %; Mean Corpuscular HGB Conc 35 g/dL (31-36); Mean Corpuscular Hemoglobin 34 pg (27-31); Mean Corpuscular Volume 98 fL (80-97); Mean Platelet Volume 7.7 fL (7.4-10.4); Platelet Count 274 10^3/uL (150-450); Red Blood Count 2.95 10^6 /uL (3.70-4.87); Red Cell Distribution Width 14 % (10-15)
[2020-05-17] MEDS: Multivitamins/Minerals TAB PO SCH (08:31)
[2020-05-17] MEDS: Cholecalciferol (VIT D3) 1,000 unit TAB PO SCH (08:31)
[2020-05-17] MEDS: Polyethylene Glycol 3350 17 GM PACKET PO SCH (08:32)
[2020-05-17] MEDS: [UNRECOGNIZED DRUG - OTHER] PO SCH (08:32)
[2020-05-17] MEDS: Diclofenac Sod EC 25 mg TAB PO SCH (08:32)
[2020-05-17] MEDS: MILK THISTLE SEED EXTRACT PO SCH (08:32)
[2020-05-17] MEDS: DULoxetine DR 30 mg CAP PO SCH (08:33)
[2020-05-17] MEDS: Heparin 5000 UNITS/ML 1 mL VIAL SUBCUT SCH (08:33)
[2020-05-17] MEDS: CMCS:Cyclosporine 0.05% OPHTH (NF) 0.4 ML VIAL BOTH EYES SCH (08:34)
[2020-05-17 11:20] VITALS: BP 130/51
== END 2020-05-17 13:25 | DRG 493 ==
LOC: ED 21:44 → MEDTELE 05-14 01:45 → SSU 05-15 16:15
PROVIDERS: ADMIT Internal Medicine; ATTEND Internal Medicine

== ENCOUNTER 2021-12-04 05:49 | Observation (INO) ==
[2021-12-04] MEDS ORDERED: Lactated Ringers 1000 ml BAG 1,000 ML IV SCH (06:00)
[2021-12-04] MEDS ORDERED: NS 0.9% 1000 ml BAG 1,000 ML IV SCH (06:00)
[2021-12-04] MEDS ORDERED: Buffered Lidocaine 1% SYRIN 1 ml INTRADERM ONE (06:00)
[2021-12-04] MEDS ORDERED: Clindamycin 900 MG/D5W BAG 900 MG/50 ML BAG IVPB ONE (06:13)
[2021-12-04] MEDS ORDERED: fentaNYL 100 mcg/2 ml 50 MCG/ML VIAL ONE (06:44)
[2021-12-04] MEDS ORDERED: Dexamethasone IV 4 MG/ML VIAL 1 ml VIAL ONE (06:44)
[2021-12-04] MEDS ORDERED: Lidocaine 2% PF 10 ML AMP (OR) ONE (06:44)
[2021-12-04] MEDS ORDERED: Midazolam 2 mg/2 ml VIAL 1 mg/ml 2 ml VIAL (2 mg) ONE (06:44)
[2021-12-04] MEDS ORDERED: Propofol 10 MG/ML 20 ML BTL ONE (06:44)
[2021-12-04] MEDS ORDERED: Ondansetron 4 mg VIAL 2 MG/ML 2 ml VIAL ONE (06:44)
[2021-12-04] MEDS ORDERED: Bupivacaine 0.25% SDV PF 10 ML VIAL INJ ONE ×2 (07:12→07:18)
[2021-12-04] MEDS ORDERED: Lidocaine 1% MPF 5 ML VIAL ONE (07:14)
[2021-12-04] MEDS ORDERED: ROPIVACAINE 5 MG/ML 30 ML BTL (0.5%) ONE (07:18)
[2021-12-04] MEDS ORDERED: Naloxone 0.4 mg VIAL 0.4 mg/ml 1 ml VIAL IV PRN (08:49)
[2021-12-04] MEDS ORDERED: Acetaminophen IV 1 GM/100ML 100 ML IV PRN (08:49)
[2021-12-04] MEDS ORDERED: fentaNYL 100 mcg/2 ml 50 MCG/ML VIAL IV PRN (08:50)
[2021-12-04] MEDS ORDERED: Ondansetron 4 mg VIAL 2 MG/ML 2 ml VIAL IV PRN ×2 (08:50→10:17)
[2021-12-04] MEDS ORDERED: Magnesium Hydroxide LIQ 30 ML UDC PO PRN (10:17)
[2021-12-04] MEDS ORDERED: Lactulose 30 ml UDC PO PRN (10:17)
[2021-12-04] MEDS ORDERED: Ondansetron ODT 4 mg TAB 4 MG TAB PO PRN (10:17)
[2021-12-04] MEDS ORDERED: METHYLNALTREXONE 12 MG/0.6 ML SUBCUT PRN (10:33)
[2021-12-04] MEDS: Lactated Ringers 1000 ml BAG 1,000 ML IV SCH (11:58)
[2021-12-04] MEDS: Clindamycin 600 MG/D5W BAG 600 MG/50 ML BAG IV SCH (16:18)
[2021-12-04] MEDS ORDERED: TAPENTADOL 100 MG PO SCH (21:00)
[2021-12-04] MEDS: Magnesium Hydroxide LIQ 30 ML UDC PO SCH (22:17)
[2021-12-04] MEDS: Polyethylene Glycol 3350 17 GM PACKET PO SCH (22:17)
[2021-12-04] MEDS: Cholecalciferol (VIT D3) 1,000 unit TAB PO SCH (22:17)
[2021-12-04] MEDS: Heparin 5000 UNITS/ML 1 mL VIAL SUBCUT SCH (22:17)
[2021-12-04] MEDS: CMC: Cyclosporine 0.05% OPHTH (NF) 0.4 ML VIAL BOTH EYES SCH (23:00)
[2021-12-05] MEDS: Lactated Ringers 1000 ml BAG 1,000 ML IV SCH (00:32)
[2021-12-05] MEDS: Clindamycin 600 MG/D5W BAG 600 MG/50 ML BAG IV SCH ×2 (00:32→10:35)
[2021-12-05 05:52] LABS: Hematocrit 28 % (35-47); Hemoglobin 9.1 g/dL (12.0-16.0); Mean Platelet Volume 7.5 fL (7.4-10.4); Platelet Count 255 10^3/uL (150-450)
[2021-12-05 06:17] LABS: Calcium 8.9 mg/dL (8.6-10.3); Potassium 4.4 mmol/L (3.5-5.0); eGFR CKD-EPI 90.7 (>60)
[2021-12-05] MEDS ORDERED: DULoxetine DR 30 mg CAP PO SCH (09:00)
[2021-12-05] MEDS ORDERED: Vitamin THERAPEUTIC TAB PO SCH (09:00)
[2021-12-05] MEDS: Polyethylene Glycol 3350 17 GM PACKET PO SCH (10:38)
[2021-12-05] MEDS: Cholecalciferol (VIT D3) 1,000 unit TAB PO SCH (10:41)
[2021-12-05] MEDS: Magnesium Hydroxide LIQ 30 ML UDC PO SCH (10:44)
[2021-12-05] MEDS: Heparin 5000 UNITS/ML 1 mL VIAL SUBCUT SCH (10:46)
[2021-12-05] MEDS: CMC: Cyclosporine 0.05% OPHTH (NF) 0.4 ML VIAL BOTH EYES SCH (10:48)
[2021-12-05 11:38] LABS: Rapid COVID-19 Molecular Undetected (Undetected)
[2021-12-05 12:45] VITALS: BP 137/56
== END 2021-12-05 13:20 ==
LOC: INTOOBSV 05:49 → AA 05:49 → SSU 11:13
PROVIDERS: ADMIT Orthopaedic Surgery; ATTEND Orthopaedic Surgery

== ENCOUNTER 2024-01-20 08:00 | Observation (INO) ==
[~2024-01-20 08:00] MED LIST: Acetaminophen IV 1 GM/100ML 1,000 MG/100 ML BAG IV ONE; Buffered Lidocaine 1% SYRIN 1 ml INTRADERM ONE; Naloxone 0.4 mg VIAL 0.4 mg/ml 1 ml VIAL IV PRN
[2024-01-20] MEDS ORDERED: Propofol 0 MG/0 ML BTL ONE (12:36)
[2024-01-20] MEDS ORDERED: Dexamethasone IV 4 MG/ML VIAL 1 ml VIAL ONE (12:36)
[2024-01-20] MEDS ORDERED: Midazolam 2 mg/2 ml VIAL 1 mg/ml 2 ml VIAL (2 mg) ONE (12:36)
[2024-01-20] MEDS ORDERED: Ondansetron 4 mg VIAL 2 MG/ML 2 ml VIAL ONE (12:36)
[2024-01-20] MEDS ORDERED: Lidocaine 2% PF 5 ML VIAL ONE (12:36)
[2024-01-20] MEDS ORDERED: fentaNYL 250 mcg/5 ml 50 MCG/ML 5 ml VIAL (250 MCG) ONE ×2 (12:36→16:24)
[2024-01-20] MEDS ORDERED: ceFAZolin 2 GM in NS PREMIX 2 GM/100 ML BAG IVPB ONE (12:37)
[2024-01-20] MEDS ORDERED: Tranexamic Acid 1 GM/100ML BAG 2,000 MG/200 ML BAG IV ONE (12:38)
[2024-01-20 12:56] LABS: Rapid COVID-19 Molecular Undetected (Undetected)
[2024-01-20] MEDS: Lactated Ringers 1000 ml BAG 1,000 ML IV SCH ×2 (13:18→22:20)
[2024-01-20] MEDS ORDERED: Famotidine IV 10 MG/ML 2 ml VIAL (20 mg) ONE (14:01)
[2024-01-20] MEDS: Famotidine IV 10 MG/ML 2 ml VIAL (20 mg) IV ONE (14:04)
[2024-01-20] MEDS ORDERED: Midazolam 5 mg/5 ml VIAL 1 mg/ml 5 ml VIAL (5 mg) ONE (14:14)
[2024-01-20] MEDS ORDERED: ROPIVACAINE 5 MG/ML 30 ML BTL (0.5%) ONE (14:15)
[2024-01-20] MEDS ORDERED: fentaNYL 100 mcg/2 ml 50 MCG/ML VIAL ONE ×2 (14:15→19:04)
[2024-01-20] MEDS ORDERED: Propofol 10 MG/ML 20 ML BTL ONE (15:05)
[2024-01-20] MEDS ORDERED: Rocuronium 50 mg VIAL 10 mg/ml 5 ml VIAL (50 mg) ONE (15:08)
[2024-01-20] MEDS ORDERED: HYDROmorphone 0.5 MG/0.5 ML SYRINGE ONE (16:10)
[2024-01-20] MEDS ORDERED: Calcium Carb (TUMS) 500 mg CHEW TAB PO PRN (16:31)
[2024-01-20] MEDS ORDERED: Magnesium Hydroxide LIQ 30 ML UDC PO PRN (16:31)
[2024-01-20] MEDS ORDERED: Ondansetron 4 mg VIAL 2 MG/ML 2 ml VIAL IV PRN (16:31)
[2024-01-20] MEDS ORDERED: Lactulose 30 ml UDC PO PRN (16:31)
[2024-01-20] MEDS ORDERED: Morphine 2 MG/ML SYRINGE IV PRN (16:31)
[2024-01-20] MEDS ORDERED: Labetalol IV 5 MG/ML 20 ml VIAL ONE (16:45)
[2024-01-20] MEDS ORDERED: Metoclopramide 5 MG/ML VIAL (10 mg) ONE (18:13)
[2024-01-20] MEDS: fentaNYL 100 mcg/2 ml 50 MCG/ML VIAL IV PRN (19:04)
[2024-01-20] MEDS ORDERED: HYDROmorphone 1 MG/1 ML SYRINGE ONE ×2 (19:17→20:00)
[2024-01-20] MEDS: HYDROmorphone 1 MG/1 ML SYRINGE IV PRN (19:19)
[2024-01-20] MEDS ORDERED: HYDROmorphone 0.5 MG/0.5 ML SYRINGE IV SLOW PU PRN (19:28)
[2024-01-20] MEDS: Ondansetron ODT 4 mg TAB 4 MG TAB PO PRN (22:37)
[2024-01-20] MEDS: Magnesium Hydroxide LIQ 30 ML UDC PO SCH (22:40)
[2024-01-20] MEDS: ceFAZolin 2 GM in NS PREMIX 2 GM/100 ML BAG IVPB SCH (23:50)
[2024-01-21 06:43] LABS: Hematocrit 29.1 % (35-45); Hemoglobin 9.8 g/dL (11.5-14.3); Mean Platelet Volume 7.2 fL (7.5-11.2); Platelet Count 352 10^3/uL (150-450)
[2024-01-21 07:02] LABS: Calcium 9.2 mg/dL (8.6-10.3); Creatinine, Serum 0.99 mg/dL (0.51-0.95); Potassium 4.2 mmol/L (3.5-5.0); eGFR CKD-EPI 57.6 (>60)
[2024-01-21] MEDS: Vitamin THERAPEUTIC TAB PO SCH (09:05)
[2024-01-21] MEDS: DULoxetine DR 30 mg CAP PO SCH (09:05)
[2024-01-21 10:11] VITALS: BP 123/68
== END 2024-01-21 13:20 | disposition home or self-care (01) ==
LOC: AA 11:49 → INTOOBSV 11:49 → SSU 20:46
PROVIDERS: ADMIT Orthopaedic Surgery Adult Reconstructive Orthopaedic Surgery; ATTEND Orthopaedic Surgery Adult Reconstructive Orthopaedic Surgery